=== PATIENT | male | born 1980 | race Caucasian/White ===

== ENCOUNTER 2025-05-09 07:57 | Emergency (ER) | payer MEDICAID ==
[~2025-05-09] VITALS: Ht 182.9 cm; Wt 77.0 kg
[2025-05-09 08:03] VITALS: O2SAT 98
[2025-05-09 10:08] LABS: HEMATOCRIT. 40.7 % (42.0-52.0); HEMOGLOBIN. 14.0 g/dL (14.0-18.0); MEAN PLATELET VOLUME 7.6 fl (7.4-10.4); PLATELET 207 x1000/uL (130-400); RED BLOOD CELL COUNT 4.24 mill/uL (4.7-6.1); RED CELL DISTRIBUTION WIDTH 14.3 % (11.6-14.6)
[2025-05-09 10:13] LABS: CREATININE 0.9 mg/dL (0.6-1.3); ETHANOL BLOOD < 10 mg/dL (<10); UREA NITROGEN BLOOD 15 mg/dL (9-23)
[2025-05-09 11:08] LABS: EOSINOPHILS % MANUAL 2.0 % (0.0-5.0); LYMPHOCYTES % MANUAL 30.0 % (20.0-50.0); MONOCYTES % MANUAL 11.0 % (2.0-8.0); NEUTROPHILS % MANUAL 57.0 % (45.0-75.0); PLATELET ESTIMATE NORMAL
[2025-05-09 12:47] LABS: *AMPHETAMINES SCREEN URINE PRESUMPTIVE POSITIVE (NEGATIVE); *BARBITURATES SCREEN URINE NEGATIVE (NEGATIVE); *BENZODIAZEPINES SCREEN URINE NEGATIVE (NEGATIVE); *COCAINE SCREEN URINE NEGATIVE (NEGATIVE); METHADONE URINE SCREEN NEGATIVE (NEGATIVE); OPIATES URINE SCREEN NEGATIVE (NEGATIVE)
[2025-05-09 12:48] LABS: CANNABINOID URINE SCREEN PRESUMPTIVE POSITIVE (NEGATIVE); ECSTASY MDMA SCREEN URINE NEGATIVE (NEGATIVE); PHENCYCLIDINE URINE SCREEN NEGATIVE (NEGATIVE)
[2025-05-10 12:00] VITALS: BP 98/55; PULSE 76; RESP 15; TEMP 36.8; O2SAT 100
== END 2025-05-10 12:45 ==
LOC: ER 07:57
DX: R45.851 Suicidal ideations (principal); F20.9 Schizophrenia, unspecified; F31.9 Bipolar disorder, unspecified; Z20.822 Contact with and (suspected) exposure to COVID-19
CPT/HCPCS: 36415; 80048; 80305; 80320; 85025; 87426; 99283; 99285; A4606; G0480

== ENCOUNTER 2025-08-26 19:05 | Emergency (ER) | payer SELFPAY ==
[~2025-08-26] VITALS: Ht 180.3 cm; Wt 75.0 kg
[2025-08-26 19:07] VITALS: O2SAT 98
[2025-08-26] MEDS: SODIUM CHLORIDE 0.9% 1,000 ML IV ONE (20:09)
[2025-08-26 20:38] LABS: BASOPHILS % 1.4 % (0.0-2.0); EOSINOPHILS % 5.7 % (0.0-5.0); HEMATOCRIT. 38.1 % (42.0-52.0); HEMOGLOBIN. 12.7 g/dL (14.0-18.0); LYMPHOCYTES % 40.2 % (20.0-50.0); MEAN PLATELET VOLUME 8.3 fl (7.4-10.4); MONOCYTES % 13.5 % (2.0-8.0); NEUTROPHILS % 39.2 % (40.0-76.0); PLATELET 264 x1000/uL (130-400); RED BLOOD CELL COUNT 3.90 mill/uL (4.7-6.1); RED CELL DISTRIBUTION WIDTH 14.1 % (11.6-14.6)
[2025-08-26 20:57] LABS: CREATININE 0.7 mg/dL (0.6-1.3); UREA NITROGEN BLOOD 7 mg/dL (9-23)
[2025-08-26 20:58] LABS: PROTEIN TOTAL 6.4 g/dL (6.0-8.3)
[2025-08-26 20:59] LABS: ASPARTATE AMINOTRANSFERASE 119 IU/L (<34); BILIRUBIN DIRECT 0.1 mg/dL (<=3.0)
[2025-08-26 21:00] LABS: BILIRUBIN TOTAL 0.3 mg/dL (0.1-1.0)
[2025-08-26 21:08] LABS: ETHANOL BLOOD 296 mg/dL (<10)
[2025-08-26] MEDS: FAMOTIDINE 20MG/2ML VIAL IV ONE (21:27)
[2025-08-26] MEDS: MAGNESIUM/ALUMINUM HYDROXIDE/SIMETHICONE 30ML UDC PO ONE (21:27)
[2025-08-27 03:07] LABS: CLARITY URINE CLEAR (CLEAR); COLOR URINE YELLOW (YELLOW); GLUCOSE URINE NEGATIVE (NEGATIVE); KETONES URINE NEGATIVE (NEGATIVE); LEUKOCYTE ESTERASE URINE NEGATIVE (NEGATIVE); NITRITE URINE NEGATIVE (NEGATIVE); OCCULT BLOOD URINE NEGATIVE (NEGATIVE); PH URINE 6.0 (4.5-8.0); PROTEIN URINE NEGATIVE (NEGATIVE); SPECIFIC GRAVITY URINE 1.018 (1.005-1.030); UROBILINOGEN URINE 0.2 E.U./dL (0.2-1.0)
[2025-08-27 03:27] LABS: *AMPHETAMINES SCREEN URINE PRESUMPTIVE POSITIVE (NEGATIVE); *BARBITURATES SCREEN URINE NEGATIVE (NEGATIVE); *BENZODIAZEPINES SCREEN URINE NEGATIVE (NEGATIVE); *COCAINE SCREEN URINE NEGATIVE (NEGATIVE); METHADONE URINE SCREEN NEGATIVE (NEGATIVE)
[2025-08-27 03:28] LABS: CANNABINOID URINE SCREEN PRESUMPTIVE POSITIVE (NEGATIVE); ECSTASY MDMA SCREEN URINE NEGATIVE (NEGATIVE); OPIATES URINE SCREEN NEGATIVE (NEGATIVE); PHENCYCLIDINE URINE SCREEN NEGATIVE (NEGATIVE)
[2025-08-27] MEDS: POTASSIUM CHLORIDE 20MEQ/PACKET PO ONE (04:21)
[2025-08-27] MEDS: QUETIAPINE FUMARATE 25MG TABLET PO SCH (10:00)
[2025-08-27 17:14] VITALS: BP 122/78; PULSE 55; RESP 16; TEMP 36.6; O2SAT 98
== END 2025-08-27 17:15 ==
LOC: ER 19:05
DX: R45.851 Suicidal ideations (principal); F20.9 Schizophrenia, unspecified; F31.9 Bipolar disorder, unspecified; F12.90 Cannabis use, unspecified, uncomplicated; F15.90 Other stimulant use, unspecified, uncomplicated; Z79.899 Other long term (current) drug therapy; Z20.822 Contact with and (suspected) exposure to COVID-19; Y90.8 Blood alcohol level of 240 mg/100 ml or more
CPT/HCPCS: 80076; 80048; 80307; 80329; 80320 ×2; 85025; 36415 ×2; 96361; 96374; 99285; 87426; 80305; 81003; J1308; J7030; G0480